=== PATIENT | female | born 1985 | race African-American/Black ===

== ENCOUNTER 2017-02-13 17:25 | Emergency (ER) | payer OTHER ==
[2017-02-13 17:35] VITALS: BP 108/69; PULSE 73; TEMP 98.8; BMI 27.8
--- NOTE | 2017-02-13 19:21 | PDOC ---
History of Present Illness - General Chief Complaint: Injury Stated Complaint: CAST EVALUATION Time Seen by Provider: 02/13/17 18:29 History Source: Patient, Care Provider (from [facility]) Exam Limitations: Other (MR. ) - History of Present Illness Initial Comments: 02/13/17 19:18 Chief complaint: Skin irritation along right lower extremity casts History of present illness: Patient is a 31-year-old female with MR here from [facility] facility here today with a staff member. She sustained a fracture of her right ankle on 01/06/2017 patient was put into a cast at [facility] and was last seen there on 01/30/2017. Patient is ambulating with a cast shoe without difficulty. Cast stocking in this area feels moist. Skin is still intact and is slightly only uncomfortable for patient but erythematous noted to this area. Timing/Duration: getting worse Severity: mild Associated Symptoms: reports: other (erythema along inner aspect of rt. lower extremity cast proximal posterior aspect) Past History - Past Medical History Allergies/Adverse Reactions: Allergies Allergy/AdvReac Type Severity Reaction Status Date / Time No Known Allergies Allergy Verified 02/13/17 17:30 Other medical history: M.R , - Suicide/Smoking/Psychosocial Hx Smoking History: Never smoked Information on smoking cessation initiated: No Hx Alcohol Use: No Drug/Substance Use Hx: No Substance Use Type: None Review of Systems - Review of Systems Able to Perform ROS?: Yes Constitutional: No: Symptoms Reported HEENTM: No: Symptoms Reported Respiratory: No: Symptoms reported Cardiac (ROS): No: Symptoms Reported ABD/GI: No: Symptoms Reported : No: Symptoms Reported Musculoskeletal: Yes: Other (fracture rt. ankile on 01/06/17) Integumentary: Yes: Erythema (along inner aspect of rt. lower extremity cast proximal aspect) Neurological: No: Symptoms reported *Physical Exam - Vital Signs Last Vital Signs Temp Pulse Resp BP Pulse Ox 98.8 F 73 18 108/69 100 02/13/17 17:31 02/13/17 17:31 02/13/17 17:31 02/13/17 17:31 02/13/17 17:31 - Physical Exam General Appearance: Yes: Appropriately Dressed Integumentary: positive: Erythema (along inner border of cast proximal posterior aspect with no open areas noted approx 5 [id number] by 1 inch, no open areas noted ) Neurologic: positive: Normal Response, Respond to painful stimul (rt. leg above cast ), Responsive. negative: Numbness, Sensory Deficit (rt. calf above cast ) Medical Decision Making - Medical Decision Making 02/13/17 19:21 Patient is a 31-year-old female with MR here from [facility] facility here today with a staff member. She sustained a fracture of her right ankle on 2016 patient was put into a cast at [facility] and was last seen there on 2016. Patient is ambulating with a cast shoe without difficulty. Cast stocking in this area feels moist. Skin is still intact and is slightly only uncomfortable for patient but erythematous noted to this area. skin irritation posterior proximal calf along cast PLAN: Cast padding applied to proximal posterior aspect of cast to protect the skin and to prevent rubbing Follow-up with orthopedist at [facility] tomorrow for further evaluation and possible cast removal and recasting *DC/Admit/Observation/Transfer Diagnosis at time of Disposition: Skin irritation - Discharge Dispostion Disposition: HOME Condition at time of disposition: Stable - Referrals Referrals: Rowan Alvarez MD [Primary Care Provider] - - Patient Instructions Additional Instructions: Do not allow patient to get cast wet further Keep cast padding that was inserted here today in place Follow up with orthopedist tomorrow at [facility] for reevaluation and possible cast removal and applying a new cast Staff from facility voiced understanding of discharge instructions and all questions were answered
== END 2017-02-13 19:29 | disposition home or self-care (01) ==
LOC: JERFT 17:25 → EDBD 17:25 → JERFT 19:29
DX: L53.8 Other specified erythematous conditions (principal)
CPT/HCPCS: 99281-25